=== PATIENT | female | born 2000 | race African-American/Black ===

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

== ENCOUNTER 2018-10-22 17:11 | Emergency (ER) | payer SELFPAY ==
[~2018-10-22] VITALS: Ht 167.6 cm; Wt 122.5 kg
[~2018-10-22 17:11] MED LIST: ALBUTEROL2.5 MG/3 M INH; AMOXICILLIN500 MG ORAL; LIDOCAINE VISCO20 ML PO; TYLENOL EXTRA500 MG ORAL
[2018-10-22 17:15] VITALS: BP 133/78
[2018-10-22 18:24] LABS: APPEARANCE,URINE CLEAR; BILIRUBIN, URINE NEGATIVE (NEGATIVE); GLUCOSE, URINE (UA) NEGATIVE (NEGATIVE); KETONES,URINE NEGATIVE (NEGATIVE); LEUKOCYTE ESTERASE ,URINE 3+ (NEGATIVE); NITRITE,URINE NEGATIVE (NEGATIVE); PH,URINE 6 (4.5-8.0); PROTEIN,URINE NEGATIVE (NEGATIVE); UROBILINOGEN,URINE 1 MG/DL (0.0-1.0)
[2018-10-22 18:26] LABS: COLOR,URINE YELLOW
[2018-10-22] MEDS ORDERED: NITROFURANTOIN100 M2 ORAL (18:31)
[2018-10-22] MEDS: metroNIDAZOLE 500mg tab ORAL ONE (18:42)
[2018-10-22 18:47] VITALS: BP 128/75
--- NOTE | 2018-10-22 19:49 | Emergency Room Report ---
History of Present Illness General Chief Complaint: Female Urogenital Problems Source: Patient Present Illness HPI Patient presents with reports that she was recently diagnosed with trichomonas by her OB physician Patient reports that she was told to go to the emergency room for treatment Denies any abdominal pain denies any vomiting or diarrhea She is approximately 7 months Denies any vaginal spotting denies any bleeding Denies any fevers or chills Denies any vaginal discharge Allergies: Coded Allergies: IBUPROFEN (Verified Allergy, Unknown, 08/30/16) Patient History Past Medical History: see triage record Pertinent Family History: none Now: Yes - 7 months Reviewed Nursing Documentation: PMH: Agreed; PSxH: Agreed Nursing Documentation-PMH Past Medical History: No History, Except For Hx Asthma: Yes Review of Systems All Other Systems: negative except mentioned in HPI Physical Exam Vital Signs Date Time Temp Pulse Resp B/P (MAP) Pulse Ox O2 Delivery O2 Flow Rate FiO2 10/22/18 17:15 98.2 107 21 133/78 (96) 97 Room Air Sp02 EP Interpretation: reviewed, normal General Appearance: well appearing, no apparent distress Head: normocephalic, atraumatic Eyes: bilateral eye PERRL, bilateral eye EOMI ENT: hearing grossly normal, normal pharynx, TMs + canals normal, uvula midline Neck: full range of motion, supple, no meningismus, no bony tend Respiratory: lungs clear, normal breath sounds, no rhonchi, no respiratory distress, no retraction, no accessory muscle use Cardiovascular #1: normal peripheral pulses, regular rate, rhythm, no edema, no gallop, no JVD, no murmur Gastrointestinal: normal bowel sounds, non tender - Gravid abdomen palpable, soft, no guarding, no hernia, no pulsatile mass Genitourinary: no CVA tenderness Musculoskeletal: normal inspection Neurologic: oriented x3, responsive, airveyor operator III-XII nml as tested, motor strength/ tone normal, sensory intact Psychiatric: mood/affect normal Skin: no rash Lymphatic: normal inspection, no adenopathy Medical Decision Making Diagnostic Impression: Primary Impression: uti Additional Impression: Trichomonas infection ER Course Given the history exam and presentation urine sample was obtained There is evidence of likely UTI There was also evidence of trichomonas patient was treated accordingly I also discussed with the patient the importance of close outpatient follow-up and further testing through [facility] for further culturing and other STD pathology There is no report of abdominal pain or cramping Patient does not meet criteria for further work-up or imaging and is stable for close outpatient follow-up Labs Test 10/22/18 17:20 Urine Color Yellow Urine Appearance Clear Urine pH 6 (4.5-8.0) Urine Specific [place] 1.015 (1.005-1.035) Urine Protein Negative (NEGATIVE) Urine Glucose (UA) Negative (NEGATIVE) Urine Ketones Negative (NEGATIVE) Urine Blood 1+ (NEGATIVE) Urine Nitrite Negative (NEGATIVE) Urine Bilirubin Negative (NEGATIVE) Urine Urobilinogen 1 MG/DL (0.0-1.0) Urine Leukocyte Esterase 3+ (NEGATIVE) Urine RBC 2-4 /HPF (0 - 2) Urine WBC 5-10 /HPF (0 - 2) Urine Squamous Epithelial Cells Few /LPF (NONE/OCC) Urine Bacteria Moderate /HPF (NONE) Urine Trichomonas Occasional /HPF (NONE) Last Vital Signs Date Time Temp Pulse Resp B/P (MAP) Pulse Ox O2 Delivery O2 Flow Rate FiO2 10/22/18 18:47 98.5 98 17 128/75 98 Room Air Status: improved Disposition: HOME, SELF-CARE Condition: Stable Scripts Nitrofurantoin Monohyd/M-Cryst* (MACROBID 100 MG*) 100 Mg Capsule 100 MG ORAL EVERY 12 HOURS for 5 Days, CAP Prov: Romaine Lopez DO 10/22/18 Patient Instructions: Urinary Tract Infection, Trichomonas Test Additional Instructions: Patient is provided with the discharge instructions notified to follow up with primary doctor in the next 2-3 days otherwise return to the er with any worsening symptoms. Please note that this report is being documented using [employer] technology. This can lead to erroneous entry secondary to incorrect interpretation by the dictating instrument. Romaine Lopez DO Oct 22, 2018 19:49
== END 2018-10-22 18:47 | disposition home or self-care (01) ==
LOC: EMR 18:43
DX: O23.43 Unspecified infection of urinary tract in pregnancy, third trimester (principal); Z3A.00 Weeks of gestation of pregnancy not specified; A59.9 Trichomoniasis, unspecified; O99.513 Diseases of the respiratory system complicating pregnancy, third trimester; J45.909 Unspecified asthma, uncomplicated; Z88.6 Allergy status to analgesic agent
CPT/HCPCS: 81003; 87086; 99283